=== PATIENT | male | born 1990 | race Caucasian/White ===

== ENCOUNTER 2016-10-09 20:24 | Emergency (ER) | payer OTHER ==
[~2016-10-09] VITALS: Ht 182.9 cm; Wt 81.2 kg
[2016-10-09 20:33] VITALS: TEMP 36.7; Ht 182.9 cm; Wt 81.2 kg
[2016-10-09] MEDS ORDERED: PROPARACAINE HCL 0.5% OP SOLN 15 ML BTL OP STA (20:43)
[2016-10-09 21:13] VITALS: BP 113/67; PULSE 59; O2SAT 96
--- NOTE | 2016-10-09 22:06 | EMERGENCY ROOM VISIT NOTE ---
History First contact with patient: 20:40 Chief Complaint: EYE ASSESSMENT Stated Complaint: BLURRY VISION-HIT WITH STICK History of Present Illness The patient is a 26 year old male who presents to the Emergency Room with complaints of right eye discomfort and blurred vision after being hit in the eye with a stick. The patient was chopping wood when something hit his face. He reports a small abrasion to the cheek as well. The patient reports that as he was sitting in the waiting room waiting, he was reading something on his Smart phone and said that his vision was somewhat blurry. Since he has been waiting for evaluation over the past few minutes, he reported that the blurriness resolved. He denies any significant discomfort, rating his pain a 2 out of 10. Tetanus immunization is up-to-date. Review of Systems 10 system review was performed and was negative except for pertinent positives and negatives as indicated in history of present illness Past Medical/Surgical History Medical Problems: (1) No significant past medical history Surgical Problems: (1) No significant past surgical history Family History FH: cancer Social History Smoking Status: Never Smoker Alcohol Use: occasionally Marital Status: single Housing Status: lives with roommate Occupation Status: employed Current/Historical Medications No Active Prescriptions or Reported Meds Allergies Coded Allergies: No Known Allergies (Unverified , 08/25/15) Physical Exam Vital Signs Date Time Temp Pulse Resp B/P Pulse Ox O2 Delivery O2 Flow Rate FiO2 10/09/16 21:13 59 18 113/67 96 10/09/16 20:33 36.7 78 18 150/76 99 Room Air Right Eye Acuity: 20/25 Left Eye Acuity: 20/15 Pain Rating (0-10): 0 Physical Exam CONSTITUTIONAL: Healthy and well nourished. Alert and oriented X 3 with positive affect. HEENT: Examination shows a small abrasion of the upper right check just under the eye. The patient has no periorbital edema. There is a small abrasion of the medial canthal region as well. No active bleeding. No tenderness to palpation of the orbital rim. Pupils equal, round and reactive. No bloody drainage from the right eye. EOMs intact without discomfort. No photophobia. NECK: Full active range of motion without discomfort. INTEGUMENTARY: No rash or other significant dermatologic conditions noted. NEUROLOGIC: Cranial nerves II-XII grossly intact. No focal neurologic deficits noted. Medical Decision & Procedures Medications Administered Medications (Trade) Dose Ordered Sig/Henny Route Start Time Stop Time Status Last Admin Dose Admin Proparacaine HCl (Alcaine 0.5% Oph Soln) 2 drops NOW STAT OP 10/09/16 20:43 10/09/16 20:44 DC 10/09/16 20:51 2 DROPS Procedure Slit lamp and fluorescein exam was performed after applying 2 proparacaine drops to the right eye. This completely resolved the patient's discomfort. Slit lamp exam does not show any evidence for foreign debris in the eye with lower or upper eyelid eversion. Negative hyphema. No bloody drainage. No globe deformity. No conjunctival injury or injection. Fluorescein exam shows a small superficial abrasion at the periphery of the cornea at 6:00. Negative Candace test. ED Course Patient history and physical exam were performed. Nurse's notes were reviewed. Visual acuity was reviewed and grossly normal. Slit lamp and fluorescein exam shows a small peripheral corneal abrasion at 6:00. The patient was encouraged to intermittently apply a cool compress to the eye. Ibuprofen or Tylenol as needed for pain. The patient was provided contact information for ophthalmology should his symptoms not improve over the next 48 hours. He may also return to the emergency department if he needs to return over the weekend. The patient was happy with plan of care, voiced understanding of all discharge instructions, and denied any pain at the conclusion of my exam. Impression Primary Impression: Right corneal abrasion Additional Impression: Facial abrasion Departure Information Dispostion Home / Self-Care Condition GOOD Prescriptions No Active Prescriptions or Reported Meds Referrals Fabio Lloyd M.D. Forms WORK / SCHOOL INSTRUCTIONS, HOME CARE DOCUMENTATION FORM, IMPORTANT VISIT INFORMATION Patient Instructions My [facility] [employer] Additional Instructions Intermittently apply ice for swelling and discomfort. Ibuprofen or Tylenol if needed for additional pain relief. Follow-up with Dr. Lloyd (service vehicle operator), or return to the emergency department if symptoms are not improving within the next 48 hours. Problem Qualifiers Primary Impression: Right corneal abrasion Encounter type: initial encounter Qualified Codes: S05.01XA - Injury of conjunctiva and corneal abrasion without foreign body, right eye, initial encounter Additional Impression: Facial abrasion Encounter type: initial encounter Qualified Codes: S00.81XA - Abrasion of other part of head, initial encounter
== END 2016-10-09 21:16 | disposition home or self-care (01) ==
LOC: C.EDB 20:25 → C.EDD 21:16
DX: S05.01XA Injury of conjunctiva and corneal abrasion without foreign body, right eye, initial encounter (principal); S00.81XA Abrasion of other part of head, initial encounter; W22.8XXA Striking against or struck by other objects, initial encounter